=== PATIENT | female | born 1995 | race African-American/Black ===

== ENCOUNTER 2023-05-19 16:57 | Emergency (ER) | payer SELFPAY ==
[2023-05-19 17:09] VITALS: BP 117/85; PULSE 104; RESP 19; TEMP 99.3; BMI 23.8
== END 2023-05-19 19:00 | disposition home or self-care (01) ==
LOC: JERFT 16:57
DX: U07.1 COVID-19 (principal)
CPT/HCPCS: 71046-TC-FY; 87635; 99284-25

== ENCOUNTER 2025-07-10 09:43 | Emergency (ER) | payer OTHER ==
[2025-07-10 09:51] VITALS: RESP 18; TEMP 98.6; BMI 24.4
[2025-07-10] MEDS ORDERED: METOCLOPRAMIDE HCL INJECTION 10 MG/2 ML VIAL ONE (10:56)
[2025-07-10] MEDS: SODIUM CHLORIDE 0.9% 500 ML INFUS.BAG IV ONE (11:30)
[2025-07-10] MEDS: METOCLOPRAMIDE HCL INJECTION 10 MG/2 ML VIAL IVPB ONE (11:31)
[2025-07-10 11:41] LABS: BG HCT 44.0 % (32.4-45.2); VENOUS BASE EXCESS -2.7 mmol/L (-2-2); VENOUS O2 SATURATION 50.8 % (70-80); VENOUS PCO2 43.5 mmHg (38-52); VENOUS PH 7.342 (7.310-7.410)
[2025-07-10 11:44] LABS: ABSOLUTE IMMATURE GRANULOCYTES 0.03 x10^3/uL (0.0-0.031); BASOPHILS # 0.02 x10^3/uL (0.01-0.08); EOSINOPHIL % 0.5 % (0.7-5.8); EOSINOPHILS # 0.03 x10^3/uL (0.04-0.36); MCHC 32.7 g/dl (32.2-35.5); MEAN CELL VOLUME 82.5 fl (79.4-94.8); MEAN PLT VOLUME 9.8 fl (9.4-12.3); MONOCYTE # 0.37 x10^3/uL (0.24-0.86); MONOCYTE % 6.5 % (4.7-12.5); RDW 13.0 % (12.1-16.8)
[2025-07-10 12:02] LABS: EPI CELLS >36 /uL (0-25.1); HYALINE CASTS 0 /uL (0-3.1); URINE APPEARANCE CLOUDY; URINE BACTERIA 536 /uL (0-1359); URINE BILIRUBIN NEGATIVE (NEGATIVE); URINE COLOR YELLOW; URINE GLUCOSE (UA) 3+ (NEGATIVE); URINE KETONE NEGATIVE (NEGATIVE); URINE LEUK ESTERASE NEGATIVE (NEGATIVE); URINE NITRITE NEGATIVE (NEGATIVE); URINE PROTEIN NEGATIVE (NEGATIVE); URINE RBC 365 /uL (0-23.9); URINE UROBILINOGEN 0.2 mg/dL (0.2-1.0); URINE WBC 21 /uL (0-25.8)
[2025-07-10 12:12] LABS: GLUCOSE,RANDOM 234.0 mg/dL (74-106); TOT PROT 7.9 g/dl (6.4-8.2)
[2025-07-10 12:13] LABS: CO2 22.0 mmol/L (21-32)
[2025-07-10 12:15] LABS: ALK PHOS 71.0 U/L (40-150)
[2025-07-10] MEDS ORDERED: ACETAMINOPHEN INJECTION 100 ML ONE (12:15)
[2025-07-10 12:17] LABS: SGPT/ALT 26.0 U/L (0-55)
[2025-07-10 12:18] LABS: CREATININE 0.49 mg/dL (0.55-1.3); SGOT/AST 21.0 U/L (5-34)
[2025-07-10] MEDS: ACETAMINOPHEN 1000 MG/100 ML BAG IVPB ONE (12:20)
[2025-07-10 12:44] LABS: HCV DIAGNOSTIC IN-HOUSE W/RFLX NON-REACTIVE (NONREACTIVE)
[2025-07-10 12:45] LABS: HIV INTERPRETATION NEGATIVE (NEGATIVE)
[2025-07-10 12:54] VITALS: BP 113/71; PULSE 82
== END 2025-07-10 12:57 | disposition home or self-care (01) ==
LOC: JER 09:43
PROC: 3E033NZ Introduction of Analgesics, Hypnotics, Sedatives into Peripheral Vein, Percutaneous Approach (ICD-10-PCS; principal; 2025-07-10)
PROC: 3E033GC Introduction of Other Therapeutic Substance into Peripheral Vein, Percutaneous Approach (ICD-10-PCS; 2025-07-10)
DX: R51.9 Headache, unspecified (principal); R19.7 Diarrhea, unspecified; J02.9 Acute pharyngitis, unspecified; M54.50 Low back pain, unspecified; M25.559 Pain in unspecified hip; R10.32 Left lower quadrant pain; M79.661 Pain in right lower leg; M79.662 Pain in left lower leg
CPT/HCPCS: 36415; 80053; 81003; 82010; 82803; 82962; 83690; 84703; 85025; 86803; 87077; 87086; 87389; 87637-QW; 99284-25